=== PATIENT | male | born 2000 | race Hispanic/Latino ===

== ENCOUNTER 2020-11-12 05:19 | Emergency (ER) | payer OTHER ==
[~2020-11-12] VITALS: Ht 165.1 cm; Wt 64.9 kg
[2020-11-12 05:24] VITALS: BP 116/78
[2020-11-12] MEDS ORDERED: ACETAMINOPHEN 500 MG TABLET PO ONE (06:00)
[2020-11-12] MEDS ORDERED: IBUPROFEN 600 MG TABLET PO ONE (06:00)
[2020-11-12] MEDS ORDERED: CYCLOBENZAPRINE HCL 10 MG TABLET PO ONE (06:00)
[2020-11-12] MEDS ORDERED: IBUPROFEN 600 MG TABLET ONE (06:11)
[2020-11-12] MEDS ORDERED: ACETAMINOPHEN 500 MG TABLET ONE (06:11)
[2020-11-12] MEDS ORDERED: CYCLOBENZAPRINE HCL 10 MG TABLET ONE (06:12)
[2020-11-12] MEDS ORDERED: AZIT250T9 PO (06:36)
[2020-11-12] MEDS ORDERED: AZITHROMYCIN 250 MG TABLET PO ONE ×2 (06:52→07:00)
[2020-11-12 07:00] VITALS: BP 128/74
== END 2020-11-12 06:56 | disposition home or self-care (01) ==
LOC: EDH 05:30
DX: U07.1 COVID-19 (principal); J45.909 Unspecified asthma, uncomplicated; Z79.899 Other long term (current) drug therapy
CPT/HCPCS: 87635; 87804 ×2; 99284; C9803